=== PATIENT | female | born 1970 | race Two or more races ===

== ENCOUNTER 2017-09-01 21:09 | Emergency (ER) | payer BC, OTHER ==
[~2017-09-01] VITALS: Ht 149.9 cm; Wt 50.4 kg
[2017-09-01 21:14] VITALS: BP 172/99
[2017-09-01] MEDS ORDERED: IBUPROFEN 200 MG TABLET ONE (21:48)
[2017-09-01] MEDS ORDERED: IBUPROFEN 200 MG TABLET PO ONE (22:00)
== END 2017-09-01 23:07 | disposition home or self-care (01) ==
LOC: ED 23:05
DX: M77.9 Enthesopathy, unspecified (principal); E78.00 Pure hypercholesterolemia, unspecified; Z90.710 Acquired absence of both cervix and uterus
CPT/HCPCS: 29260; 99284

== ENCOUNTER 2018-06-19 14:06 | Emergency (ER) | payer BC ==
[~2018-06-19] VITALS: Ht 149.9 cm; Wt 50.5 kg
[2018-06-19] MEDS ORDERED: ONDANSETRON ODT 4 MG PO ONE (14:30)
[2018-06-19] MEDS ORDERED: ONDANSETRON ODT 4 MG ONE (14:36)
[2018-06-19 15:27] VITALS: BP 176/88
== END 2018-06-19 16:17 | disposition home or self-care (01) ==
LOC: ED 16:11
DX: R11.2 Nausea with vomiting, unspecified (principal); R42 Dizziness and giddiness; E78.00 Pure hypercholesterolemia, unspecified
CPT/HCPCS: 99283; Q0162